=== PATIENT | female | born 1960 | race Caucasian/White ===

== ENCOUNTER → 2023-08-19 | Outpatient (CLI) | payer MEDICAID | END | disposition home or self-care (01) | LOC: RAD 10:28 | PROVIDERS: ATTEND Transplant Surgery | DX: K80.20 Calculus of gallbladder without cholecystitis without obstruction (principal); K76.82 Hepatic encephalopathy; K72.90 Hepatic failure, unspecified without coma; K76.6 Portal hypertension; K74.69 Other cirrhosis of liver; R18.8 Other ascites | CPT/HCPCS: 76700 ==

== ENCOUNTER 2023-12-23 09:57 | Outpatient (CLI) | payer MEDICAID, MEDICARE ==
[2023-12-23 11:21] LABS: ALANINE AMINOTRANSFERASE 13 U/L (12-78); ALBUMIN 3.6 G/DL (3.4-5.0); ALBUMIN/GLOBULIN RATIO 0.9 (1.1-1.5); ALKALINE PHOSPHATASE 104 IU/L (46-116); ANION GAP 8 (8-16); BILIRUBIN,TOTAL 1.9 MG/DL (0.1-1.0); BLOOD UREA NITROGEN 21 MG/DL (7-18); CALCIUM 9.4 MG/DL (8.5-10.1); CHLORIDE 98 MMOL/L (99-107); CREATININE 0.75 MG/DL (0.40-0.90); GLUCOSE 103 MG/DL (70-104); SODIUM 131 MMOL/L (135-145); TOTAL PROTEIN 7.8 G/DL (6.4-8.2); eGFR 78 ML/MIN
[2023-12-23 11:26] LABS: ASPARTATE AMINO TRANSFERASE 48 U/L (10-37); POTASSIUM 5.1 MMOL/L (3.5-5.1)
== END 2023-12-23 23:59 | disposition home or self-care (01) ==
LOC: LAB 09:57
PROVIDERS: ATTEND Transplant Surgery
DX: R00.1 Bradycardia, unspecified (principal); K74.69 Other cirrhosis of liver; K76.6 Portal hypertension
CPT/HCPCS: 36415; 80053; 93005